=== PATIENT | male | born 1935 | race Caucasian/White ===

== ENCOUNTER 2017-10-31 10:15 | Outpatient (CLI) | payer MEDICARE, BC | END 2017-10-31 10:16 | disposition home or self-care (01) | LOC: BICRAD 10:15 | PROVIDERS: ATTEND Internal Medicine Gastroenterology | DX: K59.00 Constipation, unspecified (principal); R63.5 Abnormal weight gain | CPT/HCPCS: 74019 ==

== ENCOUNTER 2017-11-21 09:34 | Outpatient (CLI) | payer MEDICARE, BC ==
[~2017-11-21 09:34] MED LIST: Gadobenate Dimeglumine 529 MG/1 ML (20ML VIAL) ONE
--- NOTE | 2017-11-21 11:59 | MRI ---
EXAM LUMBAR SPINE MRI WITH AND WITHOUT CONTRAST: HISTORY: Lumbar stenosis with neurogenic claudication. Previous surgery. Right leg and back pain x 2 years. COMPARISON: None. TECHNIQUE: MRI lumbar spine is performed with and without intravenous Gadolinium administration. Multisequentia l, multiplanar imaging is performed. FINDINGS: An appropriate T1 marrow signal of lumbar vertebrae. Lumbar spine vertebral body height ism maintain ed. No fracture. No significant STIR hyperintensity to suggest edema or ligamentous injury. There is no abnormal enhancement of the lumbar vertebral bodies. On the post contrast images, there is no abnormal enhancement within the thecal sac including the cau da equina and conus medullaris. Symmetric signal intensity of the psoas muscles. Appropriate signal intensity of visualized solid or john. Conus medullaris terminates at the T12 level. There are laminectomy defects at L3-L4, L4-L5, and L5-S1. T12-L1: Minimal disk desiccation. No high-grade central canal stenosis. Mild bilateral foraminal n arrowing. L1-L2: Desiccation without significant loss of disk space height. No high-grade central canal steno sis. Mild bilateral foraminal narrowing. L2-L3: No significant loss of disk space height. No high-grade central canal stenosis. Foramina ar e patent bilaterally. L3-L4: Adequate disk hydration. No significant posterior disk abnormality. There are posterior dec ompressive laminectomy defects. Severe right and moderate left foraminal narrowing. On the postcont rast images, there is enhancing scar tissue at the defect site. L3-L4: Desiccation with mild loss of disk space height. There is a generalized disk bulge without s ignificant central canal stenosis. There are posterior decompressive laminectomy defects. There is an 8 mm T2 hyperintense focus with minimal peripheral enhancement which may represent a small infecte d fluid collection versus postoperative change. There is scar tissue at the laminectomy defect site. Moderate bilateral foraminal narrowing. L5-S1: Mild loss of disk space height. There is posterior element hypertrophy with fluid in both in traarticular facet joints. No high-grade central canal stenosis. Right neural foramen is patent. M ild left foraminal narrowing. IMPRESSION: 1. Postsurgical change in the lumbar spine as above. 2. T2 hyperintense focus at the L4-L5 disk space, likely due to postoperative fluid. The possibilit y of a small less than 1 cm infected fluid collection cannot be completely excluded. Correlate clini janene. CODE T POS: [facility]
== END 2017-11-21 09:35 | disposition home or self-care (01) ==
LOC: MRI 09:34
PROVIDERS: ATTEND Nurse Practitioner Family
DX: M48.062 Spinal stenosis, lumbar region with neurogenic claudication (principal); Z98.1 Arthrodesis status
CPT/HCPCS: 72158

== ENCOUNTER 2018-09-03 11:08 | Emergency (ER) | payer MEDICARE, BC ==
--- NOTE | 2018-09-03 13:45 | RAD ---
RIGHT FOOT RADIOGRAPHS 3 VIEWS: Date: 09/03/18 PROVIDED CLINICAL HISTORY: Right foot pain status post injury. FINDINGS: There is rather diffuse regional soft tissue swelling, somewhat predominating at the dorsum of the fo ot. There is a linear radiolucency involving the proximal aspects of the middle cuneiform that may re flect nondisplaced fracture. No additional potential fracture is identified. Scattered subcortical cy st-like changes are present, nonspecific. Alignment appears anatomic. Joint spaces appear preserved. IMPRESSION: Possible nondisplaced middle cuneiform fracture. POS: [facility]
== END 2018-09-03 19:14 ==
LOC: ERS 11:08
DX: S92.301A Fracture of unspecified metatarsal bone(s), right foot, initial encounter for closed fracture (principal); G47.30 Sleep apnea, unspecified; E11.9 Type 2 diabetes mellitus without complications; I10 Essential (primary) hypertension; K21.9 Gastro-esophageal reflux disease without esophagitis; F03.90 Unspecified dementia, unspecified severity, without behavioral disturbance, psychotic disturbance, mood disturbance, and anxiety; F32.9 Major depressive disorder, single episode, unspecified; Z79.899 Other long term (current) drug therapy; W19.XXXA Unspecified fall, initial encounter
CPT/HCPCS: 29515

== ENCOUNTER 2018-09-04 10:57 | Outpatient (CLI) | payer MEDICARE, BC ==
--- NOTE | 2018-09-04 13:03 | RAD ---
AP CHEST TWO VIEWS: HISTORY: Shortness of breath. FINDINGS: The heart size is felt to be borderline for technique. There are atherosclerotic changes of the aort a. The lungs are clear of infiltrates. There are no signs of failure. There are arthritic changes of the spine. The bones appear somewhat demineralized. IMPRESSION: Borderline heart size. POS: [facility]
== END 2018-09-04 10:58 | disposition home or self-care (01) ==
LOC: RAD 10:57
PROVIDERS: ATTEND Physical Medicine & Rehabilitation
DX: I50.9 Heart failure, unspecified (principal); E11.9 Type 2 diabetes mellitus without complications; F03.90 Unspecified dementia, unspecified severity, without behavioral disturbance, psychotic disturbance, mood disturbance, and anxiety
CPT/HCPCS: 71046